=== PATIENT | male | born 1965 | race Caucasian/White ===

== ENCOUNTER 2022-05-12 19:06 | Emergency (ER) | payer OTHER, SELFPAY ==
--- NOTE | ~2022-05-12 | XR_ITS ---
EXAMINATION: XR HAND, RIGHT CLINICAL INFORMATION: Rule out foreign body COMPARISON: None TECHNIQUE: PA, lateral, and oblique views of the right hand. FINDINGS: Small bone fragment along the dorsal medial base of the third distal phalanx at the IP joint as seen on one oblique projections which may represent a small minimally displaced fracture of uncertain acuity versus degenerative periarticular calcification. Correlate clinically with pain at this location. No definite or additional fracture. No radiodense foreign body is seen. Mild IP joint osteoarthritic changes with small marginal osteophytes and relatively preserved joint spaces. No erosions. No chondrocalcinosis. Mild first CMC joint osteoarthritis. XR/XR hand RT 2V IMPRESSION: 1. No radiodense foreign body identified. 2. Small bone fragment along the dorsal medial base of the third distal phalanx at the IP joint which may represent a small fracture of uncertain acuity versus degenerative periarticular calcification. Correlate clinically.
[2022-05-12 19:20] VITALS: BP 132/68; PULSE 70; O2SAT 97
[2022-05-12 19:49] VITALS: BP 134/61; PULSE 69; RESP 16; TEMP 36.8; O2SAT 96; BMI 42.7
--- NOTE | 2022-05-12 21:42 | ED.EXTPRO ---
HPI - Extremity Problem General Chief complaint: Extremity Injury, Upper Stated complaint: fall Time Seen by Provider: 05/12/22 21:33 Source: patient Mode of arrival: ambulatory Limitations: no limitations History of Present Illness HPI Narrative: Patient comes to the emergency room complaining of a laceration to the palm of his right hand. Patient states that he had a mechanical fall. Patient was walking with a plate in his hand, patient tripped over a box that was on the floor, landed on his hand, the plate broke, a piece of ceramic wanted to be seen. Patient states that he might have bumped his forehead, did not lose consciousness. Patient has a small abrasion above the nose due to his glasses frame. Besides hand in the palm of the hand, patient states that he has no other significant injuries. Related Data Allergies Allergy/AdvReac Type Severity Reaction Status Date / Time No Known Allergies Allergy Verified 05/12/22 19:49 Review of Systems Review of Systems: Constitutional : No Weight loss, No Fever, No Chills, No Night Sweats, No Fatigue, No Malaise ENT/Mouth : No Hearing loss, No Ear Pain, No Nasal Congestion, No Sinus Pain, No Hoarseness, No sore throat, No Rhinorrhea, No Swallowing Difficulty Eyes: No Eye Pain, No Swelling, No Redness, No Foreign Body, No Discharge, No Vision Changes Cardiovascular : No Chest Pain, No SOB, No Dyspnea on Exertion, No Orthopnea, No Edema, No Palpitations Respiratory : No Cough, No Sputum, No Wheezing, No Smoke Exposure, No Dyspnea Gastrointestinal : No Nausea, No Vomiting, No Diarrhea, No Constipation, No abdominal Pain, No Hematochezia, No Melena Genitourinary : no irregular bleeding, No Dysuria, No Urinary Frequency, No Hematuria, No Urinary Incontinence, No Urgency, No Flank Pain, No Urinary Flow Changes, No Hesitancy Musculoskeletal : No joint pain, No Myalgias, No Joint Swelling Skin : Abrasions to the face and laceration to the palm of her right hand Neuro : No Weakness, No Numbness, No Paresthesias, No Loss of Consciousness, No Dizziness, No Headache Psych : No Anxiety/Panic, No Depression, No SI/HI/AH/VH, No Social Issues, Heme/Lymph: No Bruising, No Bleeding,No Lymphadenopathy Endocrine : No Polyuria, No Polydipsia, No Temperature Intolerance PMFSH Social History Social History Advance Directives: No Advance Directives Information Provided: No Physical Exam Vital Signs: Vital Signs: Last Vital Signs Temp 98.2 F 05/12/22 19:49 Pulse 69 05/12/22 19:49 Resp 16 05/12/22 19:49 BP 134/61 05/12/22 19:49 Pulse Ox 96 05/12/22 19:49 O2 Del Method 05/12/22 19:49 BMI result Body Mass Index 42.7 Const: Other: Appearance: Alert. Oriented X3. No acute distress. Eyes: Pupils equal, round and reactive to light. ENT: Pharynx normal. Neck: Normal inspection. Neck supple. No lymph nodes noted. No crepitus CVS: Normal heart rate and rhythm. Pulses normal. Normal S1 and S2 Respiratory: No respiratory distress. Breath sounds normal. No Wheezing. No rales Abdomen: Soft and nontender. No rigidity. No distention. Skin: Small abrasion to the bridge of the nose, 5 cm laceration to the palm of the right hand, deep Extremities: No lower extremity edema. No Lacerations. No Rash, laceration to the palm of the hand, patient is able to flex and extend all fingers without difficulty Neuro: Oriented X 3. No motor deficit. No sensory deficit. Moving all extremities. No slurred speech. CN 2 through 12 grossly intact Psych: calm, cooperative, normal affect Course Course Course Narrative: Patient needed 11 stitches in the palm of the right hand. Patient tolerated well the procedure. Once the skin was numbed, the patient did not have any significant pain. The x-ray showed a small bone fragment at the dorsal medial base of the 3rd distal phalanx. Patient does not have any pain there, unlikely to be an acute fracture Patient receive a Tdap booster Procedures Laceration Laceration 1: Site: hand Side (If applicable): right Size (cm): 5 Description: linear, stellate, flap and irregular Depth: simple, single layer Local Anesthetic: lidocaine 1% Amount of anesthesia used (mL): 8 Pre-repair: wound explored and irrigated extensively Skin layer closed with: nylon Size (cm): 4-0 Number of sutures: 11 Technique: simple, interrupted Discharge Plan Discharge Clinical Impression: Laceration of hand Patient Disposition: Home, Self-Care Instructions: Care For Your Stitches (ED), Laceration (ED) Additional Instructions: Your stitches need to be removed in 7-10 days. If you see any signs of infection such as redness, pus drainage, significant pain, please return immediately to the emergency room. Please follow-up with your primary care physician tomorrow. If you have any worsening or new symptoms, please return to the emergency room or call [phone]
[2022-05-12] MEDS: Diphth,Pertus(ACell),Tet Adult 0.5 ML SYRINGE IM (21:50)
[2022-05-12] MEDS: Lidocaine 4 % Cream KIT 1 APPL TOPICAL (21:51)
[2022-05-13] VITALS: BP 124/56; PULSE 66; RESP 18; TEMP 36.6; O2SAT 97
== END 2022-05-13 00:32 | disposition home or self-care (01) ==
PROVIDERS: Emergency Provider Emergency Medicine; PCP Internal Medicine
DX: S61.411A Laceration without foreign body of right hand, initial encounter (principal); W26.9XXA Contact with unspecified sharp object(s), initial encounter; Y93.9 Activity, unspecified; Y92.000 Kitchen of unspecified non-institutional (private) residence as the place of occurrence of the external cause; Y99.9 Unspecified external cause status
CPT/HCPCS: 12002; 73120; 90471; 90715; 96372; 99283; 99284